=== PATIENT | female | born 1995 | race Two or more races ===

== ENCOUNTER 2018-10-06 07:35 | Emergency (ER) | payer OTHER ==
[~2018-10-06] VITALS: Ht 165.1 cm; Wt 90.7 kg
[2018-10-06 07:53] VITALS: BP 125/83
--- NOTE | 2018-10-06 07:58 | Emergency Room Report ---
History of Present Illness General Chief Complaint: Upper Respiratory Illness Source: Patient Present Illness HPI 23-year-old female with no medical problems presents with cough with a 1 week history ofyellow sputum production, sinus congestion, symptoms are worse at night, she denies anyfevers, leg swelling, hemoptysis, chest pain. She reports she was given an inhaler in the past but has tried without much relief. She denies shortness of breath, just cough and congestion. Allergies: Coded Allergies: No Known Allergies (Unverified , 10/06/18) Patient History Past Medical History: see triage record Social History: Reports: smoking Last Menstrual Period: 09/23/18 Reviewed Nursing Documentation: PMH: Agreed; PSxH: Agreed Nursing Documentation-PMH Past Medical History: No Stated History Review of Systems All Other Systems: negative except mentioned in HPI Physical Exam Vital Signs Date Time Temp Pulse Resp B/P (MAP) Pulse Ox O2 Delivery O2 Flow Rate FiO2 10/06/18 07:43 98.4 102 20 125/83 98 Room Air Sp02 EP Interpretation: reviewed, normal General Appearance: no apparent distress, alert, non-toxic Head: normocephalic Eyes: bilateral eye normal inspection, bilateral eye PERRL, bilateral eye EOMI ENT: normal ENT inspection, hearing grossly normal, normal pharynx, no angioedema, normal voice, moist mucus membranes, nasal congestion Neck: normal inspection, full range of motion, supple, supple/symm/no masses Respiratory: chest non-tender, lungs clear, normal breath sounds, no respiratory distress, wheezing, chest symmetrical, palpation of chest normal Cardiovascular #1: normal peripheral pulses, regular rate, rhythm Cardiovascular #2: 2+ radial (R), 2+ radial (L) Gastrointestinal: normal inspection, non tender, soft, no mass, no guarding, no rebound Rectal: deferred Genitourinary: normal inspection, no CVA tenderness Musculoskeletal: back normal, gait/station normal, normal range of motion, non- tender, no calf tenderness Neurologic: alert, responsive, 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 Instructed return for lack of improvement, development of shortness of breath, chest pain, or any new symptoms. Last Vital Signs Date Time Temp Pulse Resp B/P (MAP) Pulse Ox O2 Delivery O2 Flow Rate FiO2 10/06/18 07:53 102 20 Room Air 10/06/18 07:43 98.4 125/83 98 Disposition: HOME, SELF-CARE Condition: Stable Scripts No Active Prescriptions or Reported Meds MARY DELATORRE M.D Oct 06, 2018 07:58
[2018-10-06] MEDS ORDERED: ALBUTEROL SULF8.5 GM INH (08:00)
[2018-10-06] MEDS ORDERED: ZITHROMAX250 MG ORAL (08:00)
== END 2018-10-06 08:05 | disposition home or self-care (01) ==
LOC: EMR 07:55
DX: R05 Cough (principal); R06.2 Wheezing
CPT/HCPCS: 99282

== ENCOUNTER 2018-10-12 22:39 | Emergency (ER) | payer OTHER ==
[~2018-10-12] VITALS: Ht 165.1 cm; Wt 90.7 kg
[~2018-10-12 22:39] MED LIST: ALBUTEROL SULF8.5 GM INH; ZITHROMAX250 MG ORAL
[2018-10-12] MEDS ORDERED: NKM (22:57)
[2018-10-12 23:01] VITALS: BP 141/96
--- NOTE | 2018-10-12 23:02 | NUR ---
ED Nurse Note: Patient walked in to ER c/o cough for 3 days. Per patient she can not clean her sputum out. AAO x4, VSS at this time. skin is dry. intact. Patient's O2 sat at 97% on room air, unlabored breathing.
[2018-10-12] MEDS ORDERED: Albuterol ud Inhalation HHN ONE (23:15)
--- NOTE | 2018-10-12 23:15 | NUR ---
ED Nurse Note: RT by bed side, patient is getting treatment, no acute disstress noticed.
[2018-10-12] MEDS ORDERED: PSEUDOEPHEDRINE60 MG PO (23:42)
[2018-10-12] MEDS ORDERED: AUGMENTIN 875-1 EAC1 ORAL (23:42)
[2018-10-12] MEDS ORDERED: PREDNISONE20 MG ORAL (23:42)
--- NOTE | 2018-10-12 23:43 | Emergency Room Report ---
History of Present Illness General Chief Complaint: Upper Respiratory Illness Source: Patient Present Illness HPI Is a 23-year-old female with no past medical history. She is a smoker. She presents with chief complaint of cough and congestion for the last week and a half. She was here last week and prescribe albuterol and a Z-Thanh. Not getting better. Worse with lying flat. No nausea no vomiting. Does have a lot of congestion and runny nose. Denies any other complaint. Allergies: Coded Allergies: No Known Allergies (Unverified , 10/06/18) Patient History Past Medical History: see triage record, old chart reviewed Past Surgical History: none Pertinent Family History: none Social History: Reports: smoking Last Menstrual Period: 09/23/18 Now: No : 2 Para: 2 Immunizations: other Reviewed Nursing Documentation: PMH: Agreed; PSxH: Agreed Nursing Documentation-PMH Past Medical History: No Stated History Review of Systems Constitutional: Reports: fever - Subjective Eye: Denies: eye pain, blurred vision ENT: Reports: nose congestion; Denies: ear pain, throat swelling Respiratory: Reports: cough, shortness of breath Cardiovascular: Denies: chest pain, palpitations Gastrointestinal: Denies: abdominal pain, diarrhea, nausea, vomiting Musculoskeletal: Denies: back pain, joint pain Skin: Denies: rash Neurological: Denies: headache, numbness Endocrine: Denies: increased thirst, increased urine Hematologic/Lymphatic: Denies: easy bruising All Other Systems: negative except mentioned in HPI Physical Exam Vital Signs Date Time Temp Pulse Resp B/P (MAP) Pulse Ox O2 Delivery O2 Flow Rate FiO2 10/12/18 22:39 98.6 90 18 141/96 96 Room Air 10/12/18 23:19 21 vital normal Sp02 EP Interpretation: reviewed, normal General Appearance: well appearing, no apparent distress, alert Head: normocephalic, atraumatic Eyes: bilateral eye PERRL, bilateral eye EOMI ENT: hearing grossly normal, normal pharynx, other - TMs with scarring and effusion Neck: full range of motion, supple, no meningismus Respiratory: chest non-tender, wheezing - Slight expiratory Cardiovascular #1: regular rate, rhythm, no murmur Gastrointestinal: normal bowel sounds, non tender, no mass, no organomegaly, no bruit, non-distended Musculoskeletal: back normal, gait/station normal, normal range of motion Psychiatric: mood/affect normal Skin: warm/dry Medical Decision Making Diagnostic Impression: Primary Impression: Upper respiratory infection Qualified Codes: J06.9 - Acute upper respiratory infection, unspecified Additional Impression: Otitis media Qualified Codes: H66.93 - Otitis media, unspecified, bilateral ER Course Patient with upper respiratory infection with a secondary otitis media. Is, PE , dissection. Breathing better after nebulizer treatment. We'll discharge home. Last Vital Signs Date Time Temp Pulse Resp B/P (MAP) Pulse Ox O2 Delivery O2 Flow Rate FiO2 10/12/18 23:34 77 18 99 Room Air 21 10/12/18 23:01 98.6 141/96 Status: improved Disposition: HOME, SELF-CARE Condition: Stable Scripts Pseudoephedrine Hcl* (SUDAFED*) 60 Mg Tablet 60 MG PO Q6H, #20 TAB Prov: Humberto Cardoza MD 10/12/18 Prednisone* (PREDNISONE*) 20 Mg Tablet 40 MG ORAL DAILY, #10 TAB Prov: Humberto Cardoza MD 10/12/18 Amoxicillin/Potassium Clav 875-125* (AUGMENTIN 875-125 TABLET*) 1 Each Tablet 1 TAB ORAL TWICE A DAY, #14 TAB Prov: Humberto Cardoza MD 10/12/18 Patient Instructions: Upper Respiratory Infection, Adult Additional Instructions: Continue with your albuterol inhaler. Follow-up with your doctor in 7 days. Stop smoking. Return if worse. Humberto Cardoza MD October 12, 2018 23:43
[2018-10-12 23:44] VITALS: BP 141/96
--- NOTE | 2018-10-12 23:46 | NUR ---
ED Nurse Note: Pt cleared by health care Provider for discharge. DC instructions/prescription was given and explained to pt and verbalized understanding of teachings. All medical deviecs such as ID band removed. Pt is AAO x4, ambulatory and left with all personal belongings.
== END 2018-10-12 23:50 | disposition home or self-care (01) ==
LOC: EMR 23:00
DX: J06.9 Acute upper respiratory infection, unspecified (principal); H65.93 Unspecified nonsuppurative otitis media, bilateral; F17.200 Nicotine dependence, unspecified, uncomplicated
CPT/HCPCS: 94640; 94664; 99284